=== PATIENT | male | born 1950 | race African-American/Black ===

== ENCOUNTER 2025-01-26 20:15 | Inpatient (IN) | payer OTHER ==
[~2025-01-26] VITALS: Ht 172.7 cm; Wt 53.2 kg
[2025-01-26 20:26] VITALS: O2SAT 97
[2025-01-26] MEDS: SODIUM CHLORIDE 0.9% 1,000 ML IV ONE ×2 (20:45→21:45)
[2025-01-26 21:08] LABS: HEMATOCRIT. 30.8 % (42.0-52.0); HEMOGLOBIN. 10.4 g/dL (14.0-18.0); MEAN PLATELET VOLUME 11.0 fl (7.4-10.4); PLATELET 197 x1000/uL (130-400); RED BLOOD CELL COUNT 4.14 mill/uL (4.7-6.1); RED CELL DISTRIBUTION WIDTH 18.2 % (11.6-14.6)
[2025-01-26 21:24] LABS: ASPARTATE AMINOTRANSFERASE 94 IU/L (<34)
[2025-01-26 21:25] LABS: BILIRUBIN DIRECT 0.3 mg/dL (<=3.0); BILIRUBIN TOTAL 0.8 mg/dL (0.1-1.0); PROTEIN TOTAL 8.6 g/dL (6.0-8.3)
[2025-01-26 21:28] LABS: CREATININE 6.6 mg/dL (0.6-1.3); TROPONIN I HIGH SENSITIVITY 96 ng/L (3.0-53); UREA NITROGEN BLOOD 126 mg/dL (9-23)
[2025-01-26 21:57] LABS: BAND% 1.0 % (1.0-6.0); LYMPHOCYTES % MANUAL 7.0 % (20.0-50.0); MONOCYTES % MANUAL 3.0 % (2.0-8.0); NEUTROPHILS % MANUAL 89.0 % (45.0-75.0); NUCLEATED RED BLOOD CELLS 2 /100 WBC; PLATELET ESTIMATE NORMAL
[2025-01-26 21:59] LABS: INFLUENZA TYPE A Presumptive Negative (Pres. Neg.); INFLUENZA TYPE B Presumptive Negative (Pres. Neg.)
[2025-01-26 22:00] LABS: RESPIRATORY SYNCYTIAL VIRUS Not Detected (Not Detectd)
[2025-01-26 22:39] LABS: CLARITY URINE CLEAR (CLEAR); COLOR URINE DARK YELLOW (YELLOW); GLUCOSE URINE NEGATIVE (NEGATIVE); KETONES URINE NEGATIVE (NEGATIVE); LEUKOCYTE ESTERASE URINE NEGATIVE (NEGATIVE); NITRITE URINE NEGATIVE (NEGATIVE); OCCULT BLOOD URINE 1+ (NEGATIVE); PH URINE 5.0 (4.5-8.0); PROTEIN URINE 1+ (NEGATIVE); SPECIFIC GRAVITY URINE 1.016 (1.005-1.030); UROBILINOGEN URINE 0.2 E.U./dL (0.2-1.0)
[2025-01-26] MEDS: DEXAMETHASONE 10 MG/ML VIAL IV SCH (22:45)
[2025-01-26] MEDS: LEVETIRACETAM 500MG PREMIX 100 ML IV ONE (22:45)
[2025-01-26 22:56] LABS: *AMPHETAMINES SCREEN URINE NEGATIVE (NEGATIVE); *BARBITURATES SCREEN URINE NEGATIVE (NEGATIVE); *BENZODIAZEPINES SCREEN URINE NEGATIVE (NEGATIVE); *COCAINE SCREEN URINE NEGATIVE (NEGATIVE); CANNABINOID URINE SCREEN NEGATIVE (NEGATIVE); ECSTASY MDMA SCREEN URINE NEGATIVE (NEGATIVE); METHADONE URINE SCREEN NEGATIVE (NEGATIVE); OPIATES URINE SCREEN NEGATIVE (NEGATIVE); PHENCYCLIDINE URINE SCREEN NEGATIVE (NEGATIVE)
[2025-01-26 22:58] LABS: BACTERIA URINE 1+; SQUAMOUS EPITHELIAL CELL URINE RARE /lpf (RARE/1+); WBC URINE 0-2 /hpf (0-2)
[2025-01-26] MEDS ORDERED: ACETAMINOPHEN 325MG TABLET PO PRN ×2 (23:00)
[2025-01-26] MEDS ORDERED: CLONIDINE 0.1MG TABLET PO PRN (23:00)
[2025-01-26] MEDS ORDERED: GUAIFENESIN 200MG/10ML SUGAR FREE UDC PO PRN (23:00)
[2025-01-26] MEDS ORDERED: ONDANSETRON HCL 4MG/2ML INJ IV PRN (23:00)
[2025-01-26] MEDS ORDERED: MAGNESIUM/ALUMINUM HYDROXIDE/SIMETHICONE 30ML UDC PO PRN (23:00)
[2025-01-26] MEDS ORDERED: IPRATROPIUM/ALBUTEROL 0.5-3(2.5)MG/3ML NEB HHN PRN (23:00)
[2025-01-26] MEDS ORDERED: DOCUSATE SODIUM 100MG CAPSULE PO PRN (23:00)
[2025-01-26] MEDS: SODIUM POLYSTYRENE SULFONATE 15 G/60 ML BOT PO NR (23:00)
[2025-01-27] VITALS (65 sets, daily range): BP systolic 103–136; BP diastolic 60–87; PULSE 56–104; RESP 10–29; TEMP 36.1–37.6; O2SAT 91–100
[2025-01-27 01:04] LABS: INR 1.2
[2025-01-27 01:09] LABS: PHOSPHORUS 7.6 mg/dL (2.5-4.9)
[2025-01-27 01:13] LABS: FOLIC ACID (FOLATE) SERUM 4.82 ng/mL (>5.38); VITAMIN B12 SERUM 374 pg/mL (211-911)
[2025-01-27] MEDS: DEXT 5%/LACTATED RINGERS 1,000 ML IV SCH (01:38)
[2025-01-27] MEDS: SODIUM BICARBONATE 8.4% 50MEQ/50ML SYR IV NR ×2 (03:47)
[2025-01-27] MEDS: INSULIN REGULAR (HUMULIN R) 1000UNITS/10ML VIAL IV NR (03:48)
[2025-01-27] MEDS: DEXTROSE 50% WATER 50ML SYRINGE IV NR (03:48)
[2025-01-27] MEDS: CALCIUM GLUCONATE 100MG/ML 10ML VIAL IV NR (03:48)
[2025-01-27 05:41] LABS: TRIGLYCERIDE 119.0 mg/dL (0-150)
[2025-01-27 05:42] LABS: LDL CHOLESTEROL 64.0 mg/dL (5-100)
[2025-01-27] MEDS: DEXAMETHASONE 4MG/ML 1ML VIAL IV SCH (05:42)
[2025-01-27 05:43] LABS: T4 FREE 0.94 ng/dL (0.89-1.76)
[2025-01-27 05:49] LABS: TROPONIN I HIGH SENSITIVITY 86 ng/L (3.0-53)
[2025-01-27 05:52] LABS: CREATININE 5.6 mg/dL (0.6-1.3); UREA NITROGEN BLOOD 101.0 mg/dL (9-23)
[2025-01-27 07:18] LABS: HEMATOCRIT. 23.1 % (42.0-52.0); HEMOGLOBIN. 8.0 g/dL (14.0-18.0); RED BLOOD CELL COUNT 3.11 mill/uL (4.7-6.1); RED CELL DISTRIBUTION WIDTH 17.3 % (11.6-14.6)
[2025-01-27 10:03] LABS: BAND% 7.0 % (1.0-6.0); LYMPHOCYTES % MANUAL 1.0 % (20.0-50.0); MONOCYTES % MANUAL 1.0 % (2.0-8.0); NEUTROPHILS % MANUAL 91.0 % (45.0-75.0); PLATELET ESTIMATE SLIGHTLY DECREASED
[2025-01-27 10:04] LABS: MEAN PLATELET VOLUME 10.3 fl (7.4-10.4); PLATELET 84 x1000/uL (130-400)
[2025-01-27] MEDS: PANTOPRAZOLE SODIUM 40 MG/VIAL IV SCH (10:16)
[2025-01-27] MEDS: LEVETIRACETAM 500MG PREMIX 100 ML IV SCH (10:16)
[2025-01-27] MEDS: ENOXAPARIN 60MG/0.6ML SYR SUBCUT SCH (10:20)
[2025-01-27] MEDS: FERROUS SULFATE 325MG TABLET PO SCH (11:24)
[2025-01-27] MEDS: DEXT 5%/0.9% NACL 1,000 ML IV SCH (11:28)
[2025-01-27] MEDS ORDERED: DEXTROSE 50% WATER 50ML SYRINGE IV PRN (14:15)
[2025-01-27] MEDS: BLOOD SUGAR DIAGNOSTIC STRIP TEST SCH (14:33)
[2025-01-27] MEDS: INSULIN LISPRO 100 UNITS/ML SUBCUT SCH (14:34)
[2025-01-27 16:34] LABS: TROPONIN I HIGH SENSITIVITY 82 ng/L (3.0-53)
[2025-01-27 22:10] LABS: SODIUM URINE RANDOM 69.0 mEq/L
[2025-01-27 22:15] LABS: PROTEIN URINE RANDOM 73.0 mg/dL
[2025-01-27 22:18] LABS: CREATININE URINE RANDOM 66.0 mg/dL; UREA NITROGEN URINE RANDOM 712.0 mg/dL
[2025-01-27] MEDS: IRON SUCROSE COMPLEX 100 MG/5 ML ML IV SCH (23:02)
[2025-01-27] MEDS: SODIUM CHLORIDE 0.9% 1,000 ML IV SCH (23:02)
[2025-01-28] VITALS (37 sets, daily range): BP systolic 95–138; BP diastolic 55–98; PULSE 47–74; RESP 11–24; TEMP 36.3–36.9; O2SAT 93–100
[2025-01-28 00:12] LABS: TROPONIN I HIGH SENSITIVITY 59 ng/L (3.0-53)
[2025-01-28] MEDS: DEXT 5%/LACTATED RINGERS 1,000 ML IV SCH (02:57)
[2025-01-28 05:51] LABS: PLATELET 123 x1000/uL (130-400); RED BLOOD CELL COUNT 3.17 mill/uL (4.7-6.1); RED CELL DISTRIBUTION WIDTH 17.6 % (11.6-14.6)
[2025-01-28 06:00] LABS: UREA NITROGEN BLOOD 92 mg/dL (9-23)
[2025-01-28 06:02] LABS: PHOSPHORUS 4.7 mg/dL (2.5-4.9)
[2025-01-28 06:15] LABS: CREATININE 3.5 mg/dL (0.6-1.3)
[2025-01-28] MEDS: SODIUM CHLORIDE 0.9% 1,000 ML IV SCH (07:20)
[2025-01-28] MEDS: FOLIC ACID 1MG TABLET PO SCH (09:39)
[2025-01-29] VITALS (12 sets, daily range): BP systolic 110–155; BP diastolic 61–89; PULSE 55–86; RESP 12–20; TEMP 36.1–36.7; O2SAT 98–100
[2025-01-29 07:12] LABS: UREA NITROGEN BLOOD 57.0 mg/dL (9-23)
[2025-01-29 07:52] LABS: CREATININE 2.2 mg/dL (0.6-1.3)
[2025-01-29] MEDS: SODIUM CHLORIDE 0.45% 1,000 ML IV SCH (10:36)
[2025-01-29 11:26] LABS: HEMOGLOBIN. 8.5 g/dL (14.0-18.0); MEAN PLATELET VOLUME 9.9 fl (7.4-10.4); PLATELET 136 x1000/uL (130-400); RED BLOOD CELL COUNT 3.42 mill/uL (4.7-6.1); RED CELL DISTRIBUTION WIDTH 17.4 % (11.6-14.6)
[2025-01-29 11:31] LABS: HEMATOCRIT. 25.5 % (42.0-52.0)
[2025-01-29 13:14] LABS: LYMPHOCYTES % MANUAL 4.0 % (20.0-50.0); NEUTROPHILS % MANUAL 96.0 % (45.0-75.0); NUCLEATED RED BLOOD CELLS 2 /100 WBC; PLATELET ESTIMATE NORMAL
[2025-01-29] MEDS: CEFTRIAXONE 1GM/50ML 50 ML IV SCH (16:03)
[2025-01-30] VITALS (12 sets, daily range): BP systolic 123–165; BP diastolic 73–102; PULSE 58–88; RESP 13–28; TEMP 36.2–36.6; O2SAT 97–100
[2025-01-30 11:48] LABS: HEMATOCRIT. 28.2 % (42.0-52.0); HEMOGLOBIN. 9.5 g/dL (14.0-18.0); MEAN PLATELET VOLUME 10.4 fl (7.4-10.4); PLATELET 136 x1000/uL (130-400); RED BLOOD CELL COUNT 3.78 mill/uL (4.7-6.1); RED CELL DISTRIBUTION WIDTH 17.4 % (11.6-14.6)
[2025-01-30 12:05] LABS: CREATININE 1.7 mg/dL (0.6-1.3); UREA NITROGEN BLOOD 37.0 mg/dL (9-23)
[2025-01-30] MEDS: ENOXAPARIN 60MG/0.6ML SYR SUBCUT SCH (14:19)
[2025-01-30 17:29] LABS: INR 1.3
[2025-01-30] MEDS: CEFEPIME 1GM/50ML 50 ML IV SCH (21:07)
[2025-01-30 21:29] LABS: BAND% 1.0 % (1.0-6.0); LYMPHOCYTES % MANUAL 7.0 % (20.0-50.0); MONOCYTES % MANUAL 2.0 % (2.0-8.0); NEUTROPHILS % MANUAL 90.0 % (45.0-75.0); NUCLEATED RED BLOOD CELLS 12 /100 WBC; PLATELET ESTIMATE NORMAL
[2025-01-31] VITALS (11 sets, daily range): BP systolic 122–155; BP diastolic 70–113; PULSE 64–98; RESP 13–25; TEMP 36.4–36.6; O2SAT 97–100
[2025-01-31 07:49] LABS: HEMATOCRIT. 27.0 % (42.0-52.0); HEMOGLOBIN. 9.4 g/dL (14.0-18.0); MEAN PLATELET VOLUME 10.6 fl (7.4-10.4); PLATELET 154 x1000/uL (130-400); RED BLOOD CELL COUNT 3.71 mill/uL (4.7-6.1); RED CELL DISTRIBUTION WIDTH 17.5 % (11.6-14.6)
[2025-01-31 07:53] LABS: INR 1.3
[2025-01-31 08:11] LABS: CREATININE 1.5 mg/dL (0.6-1.3); UREA NITROGEN BLOOD 33 mg/dL (9-23)
[2025-01-31 08:13] LABS: PHOSPHORUS 2.0 mg/dL (2.5-4.9)
[2025-01-31] MEDS: FAMOTIDINE 20MG/2ML VIAL IV SCH (08:41)
[2025-01-31 10:38] LABS: BAND% 1.0 % (1.0-6.0); LYMPHOCYTES % MANUAL 6.0 % (20.0-50.0); MONOCYTES % MANUAL 4.0 % (2.0-8.0); NEUTROPHILS % MANUAL 89.0 % (45.0-75.0); NUCLEATED RED BLOOD CELLS 32 /100 WBC; PLATELET ESTIMATE NORMAL
[2025-01-31] MEDS: MAGNESIUM 2 G PREMIX 50 ML IV ONE (10:39)
[2025-01-31] MEDS: POTASSIUM PHOSPHATE 10 MMOL in DEXT 5% WATER 246.6667 ML IV ONE (12:20)
[2025-02-01] VITALS (8 sets, daily range): BP systolic 102–141; BP diastolic 63–94; PULSE 71–93; RESP 17–26; TEMP 36.4–36.8; O2SAT 99–100
[2025-02-01 06:57] LABS: HEMATOCRIT. 26.1 % (42.0-52.0); HEMOGLOBIN. 8.8 g/dL (14.0-18.0); MEAN PLATELET VOLUME 10.6 fl (7.4-10.4); PLATELET 168 x1000/uL (130-400); RED BLOOD CELL COUNT 3.55 mill/uL (4.7-6.1); RED CELL DISTRIBUTION WIDTH 16.8 % (11.6-14.6)
[2025-02-01 07:14] LABS: CREATININE 1.4 mg/dL (0.6-1.3); UREA NITROGEN BLOOD 29 mg/dL (9-23)
[2025-02-01 07:16] LABS: PHOSPHORUS 1.8 mg/dL (2.5-4.9)
[2025-02-01 13:14] LABS: BAND% 2.0 % (1.0-6.0); LYMPHOCYTES % MANUAL 12.0 % (20.0-50.0); MONOCYTES % MANUAL 7.0 % (2.0-8.0); NEUTROPHILS % MANUAL 79.0 % (45.0-75.0); NUCLEATED RED BLOOD CELLS 30 /100 WBC; PLATELET ESTIMATE NORMAL
[2025-02-01] MEDS: MAGNESIUM 2 G PREMIX 50 ML IV SCH (17:31)
[2025-02-01] MEDS: SODIUM PHOSPHATE 20 MMOL in DEXT 5% WATER 243.3333 ML IV SCH (18:06)
[2025-02-02] VITALS: BP 146/92; PULSE 76; RESP 18; TEMP 36.8; TEMP 36.9; O2SAT 100
[2025-02-02 04:00] VITALS: BP_SYST 110; BP_SYST 145; BP_DIAS 83; BP_DIAS 94; PULSE 77; RESP 16; TEMP 36.4; TEMP 36.9; O2SAT 11
[2025-02-02 08:00] VITALS: BP 136/87; PULSE 74; RESP 18; TEMP 36.8; O2SAT 100
[2025-02-02 12:00] VITALS: BP 118/75; PULSE 87; RESP 18; TEMP 36.7; O2SAT 100
[2025-02-02] MEDS ORDERED: KEPP500 MT (13:38)
[2025-02-02] MEDS ORDERED: PROT40 MT (13:38)
[2025-02-02] MEDS ORDERED: SULF1TAB47 MT (13:38)
[2025-02-02 15:40] VITALS: BP 128/76; PULSE 107; RESP 18; TEMP 98.1
[2025-02-02 16:00] VITALS: BP 117/87; PULSE 102; RESP 19; TEMP 36.7; O2SAT 100
[2025-02-02 17:08] LABS: HEMATOCRIT. 31.3 % (42.0-52.0); HEMOGLOBIN. 10.5 g/dL (14.0-18.0); MEAN PLATELET VOLUME 10.7 fl (7.4-10.4); PLATELET 150 x1000/uL (130-400); RED BLOOD CELL COUNT 4.17 mill/uL (4.7-6.1); RED CELL DISTRIBUTION WIDTH 17.4 % (11.6-14.6)
[2025-02-02 17:17] LABS: CREATININE 1.4 mg/dL (0.6-1.3); UREA NITROGEN BLOOD 19 mg/dL (9-23)
[2025-02-02 23:32] LABS: LYMPHOCYTES % MANUAL 7.0 % (20.0-50.0); MONOCYTES % MANUAL 5.0 % (2.0-8.0); NEUTROPHILS % MANUAL 88.0 % (45.0-75.0); NUCLEATED RED BLOOD CELLS 26 /100 WBC; PLATELET ESTIMATE NORMAL
== END 2025-02-02 16:43 | DRG 871 ==
LOC: ER 20:15 → MICUSO 22:19 → EDBEDREQTM 22:24 → EDBEDREQSVC 22:24 → EDBEDREQ 22:24 → ENRESERV 01-27 00:02 → 5EST 01-28 11:45
PROVIDERS: ADMIT Internal Medicine; ATTEND Internal Medicine
DX: A41.9 Sepsis, unspecified organism (principal); G93.41 Metabolic encephalopathy; I21.4 Non-ST elevation (NSTEMI) myocardial infarction; N17.0 Acute kidney failure with tubular necrosis; E87.1 Hypo-osmolality and hyponatremia; E87.20 Acidosis, unspecified; M62.82 Rhabdomyolysis; E87.0 Hyperosmolality and hypernatremia; N39.0 Urinary tract infection, site not specified; I82.412 Acute embolism and thrombosis of left femoral vein; I82.432 Acute embolism and thrombosis of left popliteal vein; I82.411 Acute embolism and thrombosis of right femoral vein; E83.39 Other disorders of phosphorus metabolism; D50.9 Iron deficiency anemia, unspecified; E83.41 Hypermagnesemia; E86.9 Volume depletion, unspecified; E87.5 Hyperkalemia; D32.0 Benign neoplasm of cerebral meninges; N18.9 Chronic kidney disease, unspecified; F19.10 Other psychoactive substance abuse, uncomplicated; F10.10 Alcohol abuse, uncomplicated; L89.156 Pressure-induced deep tissue damage of sacral region; E86.0 Dehydration; R73.9 Hyperglycemia, unspecified; Z20.822 Contact with and (suspected) exposure to COVID-19; E53.8 Deficiency of other specified B group vitamins; B96.1 Klebsiella pneumoniae [K. pneumoniae] as the cause of diseases classified elsewhere
CPT/HCPCS: 36415; 70551; 71045; 76770; 80048; 80061; 80076; 80305; 80307; 80320; 80329; 81003; 82140; 82550; 82570; 82607; 82728; 82746; 82962; 83036; 83540; 83550; 83735; 83880; 84100; 84132; 84145; 84156; 84300; 84439; 84443; 84484; 84540; 85014; 85018; 85025; 85027; 87077; 87186; 87420; 87426; 87804; 92610; 93970; 97162; 97166; 97530; 99285; A4606; J0612; J0692; J0696; J1100; J1308; J1650; J1815; J1953; J2470; J3475; J3490; J7030; J7042; J7060; J7121; G0480